=== PATIENT | male | born 1960 | race American Indian/Alaskan Native ===

== ENCOUNTER 2017-12-12 17:35 | Emergency (ER) | payer MEDICAID ==
[2017-12-12 18:42] LABS: Basophils % (Auto) 0.8 % (0.0-1.8); Eosinophils # (Auto) 0.2 K/mm3 (0.0-0.4); Eosinophils % (Auto) 2.8 % (0.0-4.3); Hematocrit 38.1 % (35.5-45.6); Lymphocytes # (Auto) 1.8 K/mm3 (1.2-5.4); Lymphocytes % (Auto) 33.6 % (13.4-35.0); Mean Corpuscular HGB Conc 34 % (32-34); Mean Corpuscular Hemoglobin 33 pg (28-32); Mean Corpuscular Volume 98 fl (84-94); Monocytes # (Auto) 0.5 K/mm3 (0.0-0.8); Monocytes % (Auto) 9.2 % (0.0-7.3); Platelet Count 337 K/mm3 (140-440); Red Blood Count 3.89 M/mm3 (3.65-5.03); Red Cell Distribution Width 13.5 % (13.2-15.2)
[2017-12-12 19:09] LABS: BUN/Creatinine Ratio 20; Blood Urea Nitrogen 24 mg/dL (9-20); Calcium 9.4 mg/dL (8.4-10.2); Hemolysis Index 4
--- NOTE | 2017-12-12 19:59 | Emergency Department Report ---
HPI - General Chief Complaint: Medical Clearance Time Seen by Provider: 12/12/17 17:54 - HPI HPI: 57-year-old [place] male presents to the emergency department via EMS from [facility] facility, where the patient is being seen for what appears to be suicidal ideations. There was a 1013 was filled out on 12/11 stating that the patient was suicidal. There is some blood work seen from that same day that shows severe renal failure, elevated troponin, anemia. However I am hesitant that this is the correct blood work for this particular patient as the patient would not have been medically cleared to go to a psychiatric facility with these lab values. There is some indication on that same paper, but does not have this patient's name, saying that it indication for being there was fever and hypotension. However this patient is currently afebrile, hypertensive and is on hydrochlorothiazide for his blood pressure. He also has a history of insulin dependent diabetes and hyperlipidemia. The patient himself has no complaints and says he is unaware as to why he was sent in to the emergency department. ED Past Medical Hx - Past Medical History Previous Medical History?: Yes Hx Hypertension: Yes Hx Diabetes: Yes - Surgical History Past Surgical History?: No - Social History Smoking Status: Current Some Day Smoker Substance Use Type: None ED Review of Systems ROS: Stated complaint: HIGH BP Other details as noted in HPI Comment: All other systems reviewed and negative Constitutional: denies: chills, fever Eyes: denies: eye pain, eye discharge, vision change ENT: denies: ear pain, throat pain Respiratory: denies: cough, shortness of breath, wheezing Cardiovascular: denies: chest pain, palpitations Gastrointestinal: denies: abdominal pain, nausea, diarrhea Genitourinary: denies: urgency, dysuria Musculoskeletal: denies: back pain, joint swelling, arthralgia Skin: denies: rash, lesions Neurological: denies: headache, weakness, paresthesias Physical Exam - Physical Exam Vital Signs: Vital Signs 12/12/17 12/12/17 12/12/17 17:57 17:59 18:00 Temperature 98.3 F Pulse Rate 78 74 75 Respiratory 18 18 15 Rate Blood Pressure 181/99 Blood Pressure 177/99 [Left] O2 Sat by Pulse 96 100 95 Oximetry 12/12/17 12/12/17 12/12/17 18:01 18:16 18:30 Temperature Pulse Rate 74 77 Respiratory 18 16 16 Rate Blood Pressure 181/99 181/99 Blood Pressure [Left] O2 Sat by Pulse 94 93 Oximetry 12/12/17 12/12/17 12/12/17 18:46 19:00 19:16 Temperature Pulse Rate 72 72 71 Respiratory 15 16 15 Rate Blood Pressure 181/99 181/99 138/78 Blood Pressure [Left] O2 Sat by Pulse 92 92 92 Oximetry 12/12/17 12/12/17 19:30 19:50 Temperature Pulse Rate 71 66 Respiratory 17 Rate Blood Pressure 138/78 138/78 Blood Pressure [Left] O2 Sat by Pulse 96 Oximetry Physical Exam: GENERAL: The patient is well-developed well-nourished. HENT: Normocephalic. Atraumatic. Patient has moist mucous membranes. EYES: Extraocular motions are intact. Pupils equal reactive to light bilaterally. NECK: Supple. Trachea is midline. CHEST/LUNGS: Clear to auscultation. There is no respiratory distress noted. HEART/CARDIOVASCULAR: Regular. There is no tachycardia. There is no murmur. ABDOMEN: Abdomen is soft, nontender. Patient has normal bowel sounds. There is no abdominal distention. SKIN: Skin is warm and dry. NEURO: The patient is very sleepy. Once he is awake he is alert and oriented. He answers questions appropriately. No facial asymmetry. Cranial nerves II through XII grossly intact.. MUSCULOSKELETAL: There is no tenderness or deformity. There is no limitation range of motion. There is no evidence of acute injury. ED Course Vital Signs 12/12/17 12/12/17 12/12/17 17:57 17:59 18:00 Temperature 98.3 F Pulse Rate 78 74 75 Respiratory 18 18 15 Rate Blood Pressure 181/99 Blood Pressure 177/99 [Left] O2 Sat by Pulse 96 100 95 Oximetry 12/12/17 12/12/17 12/12/17 18:01 18:16 18:30 Temperature Pulse Rate 74 77 Respiratory 18 16 16 Rate Blood Pressure 181/99 181/99 Blood Pressure [Left] O2 Sat by Pulse 94 93 Oximetry 12/12/17 12/12/17 12/12/17 18:46 19:00 19:16 Temperature Pulse Rate 72 72 71 Respiratory 15 16 15 Rate Blood Pressure 181/99 181/99 138/78 Blood Pressure [Left] O2 Sat by Pulse 92 92 92 Oximetry 12/12/17 12/12/17 19:30 19:50 Temperature Pulse Rate 71 66 Respiratory 17 Rate Blood Pressure 138/78 138/78 Blood Pressure [Left] O2 Sat by Pulse 96 Oximetry ED Medical Decision Making - Lab Data Result diagrams: 12/12/17 18:11 12/13/17 01:04 - EKG Data -: EKG Interpreted by Md EKG shows normal: sinus rhythm, axis, intervals, QRS complexes (LVH), ST-T waves Rate: normal - EKG Data When compared to previous EKG there are: previous EKG unavailable Interpretation: LVH - Radiology Data Radiology results: report reviewed EXAM: CT HEAD/BRAIN WO CON HISTORY: AMS TECHNIQUE: CT head without contrast PRIORS: None. FINDINGS: No acute intra-axial or extra-axial hemorrhage is identified. There is no evidence of midline shift or mass effect. The ventricles and sulci are within normal limits. Rudd-white matter differentiation is intact. No acute parenchymal abnormalities seen. Bony calvarium is grossly intact. Visualized portions of the mastoids and paranasal sinuses are unremarkable. IMPRESSION: Negative CT head Transcribed By: BIRD Dictated By: JAYLEEN SAXENA MD Electronically Authenticated By: JAYLEEN SAXENA MD Signed Date/Time: 12/12/172034 - Medical Decision Making This patient was sent in from reports for a medical evaluation. He was sent with lab results from the previous day that I believe to be either not his or false positives. Those labs showed a creatinine of 12 showing significant renal failure and subsequently an elevated troponin. Labs done in the emergency department today are completely normal without any renal failure, a normal troponin, no signs of infection or any signs of anemia. Vital signs were stable throughout his ED course. There is some record that he was sent in due to hypertension but his blood pressure came down to a more reasonable level without any medication given and he appears to be on home blood pressure meds. EKG did not show any signs of ST elevation [place], ischemia or dysrhythmia. The patient was rather sleepy but was arousable. Once awake he was oriented to place and time and person and answered questions properly. No obvious signs of any focal, motor or sensory deficits and his cranial nerves were intact. As part of his medical clearance, I did a CT scan of his head that did not show any bleed, shift, mass or any other acute process. Prior to the patient being returned to [facility], the patient was awake and ambulatory throughout the emergency department and did not appear unstable. He has been instructed to follow-up with his primary care physician once he is able to do so and to return to the emergency Department with any worsening of his symptoms or any acute distress. Critical Care Time: No Critical care attestation.: If time is entered above; I have spent that time in minutes in the direct care of this critically ill patient, excluding procedure time. ED Disposition Clinical Impression: Medical clearance for psychiatric admission Hypertension Qualifiers: Hypertension type: essential hypertension Qualified Code(s): I10 - Essential ( primary) hypertension Disposition: DC/TX-65 PSY HOSP/PSY UNIT Is pt being admited?: No Condition: Stable Instructions: Hypertension (ED) Additional Instructions: Please follow-up with your primary care physician once you are done at [facility]. Continue taking her blood pressure, cholesterol and diabetes medications as previously prescribed. Return to the emergency Department with any worsening of your symptoms or any acute distress. Referrals: BALDEMAR CAT MD [Primary Care Provider] - [facility] Time of Disposition: 20:01
--- NOTE | 2017-12-12 20:36 | Cat Scan Report ---
FINAL REPORT EXAM: CT HEAD/BRAIN WO CON HISTORY: AMS TECHNIQUE: CT head without contrast PRIORS: None. FINDINGS: No acute intra-axial or extra-axial hemorrhage is identified. There is no evidence of midline shift or mass effect. The ventricles and sulci are within normal limits. Rudd-white matter differentiation is intact. No acute parenchymal abnormalities seen. Bony calvarium is grossly intact. Visualized portions of the mastoids and paranasal sinuses are unremarkable. IMPRESSION: Negative CT head
--- NOTE | 2017-12-13 00:50 | Emergency Department Report ---
Blank Doc - Documentation Documentation: She was signed out to me at 1999 on 12/12/[address] childs, to follow-up on patient and patient's labs and CT scan. Patient is a 57-year-old male that presents emergency room for medical clearance and evaluation for [facility] psychiatric facility. Patient was transferred to [facility] for suicidal ideations from the [facility] in [place]. However after being admitted into the psychiatric facility, the nurse at the psychiatric noticed some grossly abnormal labs and the patient was transferred to this ER for medical clearance and further evaluation. Patient's labs have all been normal and unremarkable. Patient is ambulatory. Patient answering all questions appropriately. Patient moving all extremities. Patient is arousable and answers questions appropriately. We will recheck patient's labs once more prior to discharge. Repeat chemistry and troponin are negative. Patient ambulatory and tolerating by mouth fluids and by mouth food. CT scan of the brain is negative. We will initiate Dr. coronado discharge plan. Patient will be transferred back to his psychiatric facility to continue psychiatric treatment FINAL REPORT EXAM: CT HEAD/BRAIN WO CON HISTORY: AMS TECHNIQUE: CT head without contrast PRIORS: None. FINDINGS: No acute intra-axial or extra-axial hemorrhage is identified. There is no evidence of midline shift or mass effect. The ventricles and sulci are within normal limits. Rudd-white matter differentiation is intact. No acute parenchymal abnormalities seen. Bony calvarium is grossly intact. Visualized portions of the mastoids and paranasal sinuses are unremarkable. IMPRESSION: Negative CT head Transcribed By: BIRD Dictated By: JAYLEEN SAXENA MD Electronically Authenticated By: JAYLEEN SAXENA MD Signed Date/Time: 12/12/172034
[2017-12-13 01:51] LABS: BUN/Creatinine Ratio 19; Blood Urea Nitrogen 21 mg/dL (9-20); Calcium 9.5 mg/dL (8.4-10.2); Hemolysis Index 5
[2017-12-13 02:52] VITALS: BP 158/101
== END 2017-12-13 02:51 ==
LOC: ED 17:35
DX: R45.851 Suicidal ideations (principal); I10 Essential (primary) hypertension; E11.9 Type 2 diabetes mellitus without complications; F17.200 Nicotine dependence, unspecified, uncomplicated
CPT/HCPCS: 36415; 70450; 80048; 82140; 84484; 85025; 93005; 93010; 99285